=== PATIENT | male | born 1990 | race Caucasian/White ===

== ENCOUNTER 2017-09-18 06:22 | Day surgery (SDC) | payer OTHER, SELFPAY ==
[2017-09-18] MEDS ORDERED: PROMETHAZINE 25 MG/ML VIAL ONE (06:46)
[2017-09-18] MEDS ORDERED: MORPHINE 4 MG/ML SYR ONE ×2 (06:46→09:26)
[2017-09-18] MEDS ORDERED: NA CHLORIDE 0.9% 1,000 ML ONE (06:46)
[2017-09-18 07:15] LABS: Absolute Lymphocytes (CBC) 1.3 K/uL (0.7-4.9); Absolute Neutrophil 10.2 K/uL (1.8-8.0); Basophils % 0.2 % (0-1.3); Eosinophils % 0.8 % (0-4.4); Hematocrit 50.8 % (39.6-49.0); Lymphocytes % 10.5 % (15.3-44.8); MCH 29.7 pg (27.0-35.0); MPV 9.3 fL (7.6-11.3); Monocytes % 7.8 % (3.3-12.3); RBC Red Blood Cell Count 5.78 M/uL (4.33-5.43)
--- NOTE | 2017-09-18 07:36 | ER ---
Nurse's Notes [facility] Name: Veronica Joe Age: 27 yrs Sex: Male : 1990 Arrival Date: 09/18/2017 Time: 06:26 Bed 8 Private MD: Diagnosis: Acute appendicitis Presentation: 09/18 06:36 Presenting complaint: Patient states: LUQ pain that radiates to back since yesterday. aa1 Reports V/D yesterday as well. Transition of care: patient was not received from another setting of care. Onset of symptoms was September 17, 2017. Initial Sepsis Screen: Does the patient meet any 2 criteria? No. Patient's initial sepsis screen is negative. Does the patient have a suspected source of infection? Yes: Acute abdominal pain. Care prior to arrival: None. 06:36 Method Of Arrival: Ambulatory aa1 06:36 Acuity: FREDERICK 3 aa1 Historical: - Allergies: 06:38 No Known Allergies; aa1 - Home Meds: 06:38 None [Active]; aa1 - PMHx: 06:38 None; aa1 - PSHx: 06:38 Knee surgery; shoulder sx; aa1 - Immunization history:: Flu vaccine is not up to date. - Social history:: Smoking status: Patient/guardian denies using tobacco. Screenin:41 Abuse screen: Denies threats or abuse. Denies injuries from another. Nutritional bp screening: No deficits noted. Tuberculosis screening: No symptoms or risk factors identified. Fall Risk None identified. Assessment: 06:40 General: Appears in no apparent distress. uncomfortable, Behavior is calm, cooperative, bp appropriate for age. Pain: Complains of pain in left upper quadrant. Neuro: Level of Consciousness is awake, alert, obeys commands, Oriented to person, place, time, situation, Appropriate for age. Cardiovascular: No deficits noted. Respiratory: Airway is patent Respiratory effort is even, unlabored, Respiratory pattern is regular, symmetrical. GI: Bowel sounds present X 4 quads. Abd is soft X 4 quads Abdomen is tender to palpation. : No signs and/or symptoms were reported regarding the genitourinary system. EENT: No deficits noted. Derm: No deficits noted. Musculoskeletal: Circulation, motion, and sensation intact. Range of motion: intact in all extremities. 06:56 Reassessment: PO CONTRAST COMPLETED, CT NOTIFIED. bp 07:00 General: Appears in no apparent distress. uncomfortable, Behavior is calm, cooperative, hj appropriate for age. Pain: Complains of pain in right lower quadrant and left lower quadrant and left upper quadrant. Neuro: Level of Consciousness is awake, alert, obeys commands, Oriented to person, place, time, situation, Appropriate for age. Cardiovascular: Capillary refill < 3 seconds Patient's skin is warm and dry. Respiratory: Airway is patent Respiratory effort is even, unlabored, Respiratory pattern is regular, symmetrical. GI: Bowel sounds present X 4 quads. Abd is soft Abdomen is tender to palpation. : No signs and/or symptoms were reported regarding the genitourinary system. EENT: No signs and/or symptoms were reported regarding the EENT system. Derm: No signs and/or symptoms reported regarding the dermatologic system. Musculoskeletal: No signs and/or symptoms reported regarding the musculoskeletal system. 08:00 Reassessment: awaiting results and POC;. Vital Signs: 06:38 BP 128 / 84; Pulse 78; Resp 18; Temp 97.8; Pulse Ox 100% on R/A; Weight 90.72 kg; aa1 Height 6 ft. 2 in. (187.96 cm); Pain 10/10; 08:01 BP 110 / 81; Pulse 70; Resp 18; Pulse Ox 100% on R/A; hj 09:00 BP 115 / 80; Pulse 75; Resp 18; Pulse Ox 100% on R/A; hj 10:00 BP 124 / 80; Pulse 75; Resp 18; Pulse Ox 100% on R/A; hj 06:38 Body Mass Index 25.68 (90.72 kg, 187.96 cm) aa1 ED Course: 06:26 Patient arrived in ED. ds1 06:30 Rolando Taylor PA is PHCP. jr8 06:31 Fortunato Alva MD is Attending Physician. jr8 06:37 Triage completed. aa1 06:38 Arm band placed on right wrist. Patient placed in an exam room, on a stretcher. aa1 06:39 Huey Sevilla, BRAULIO is Primary Nurse. bp 06:42 Patient has correct armband on for positive identification. Bed in low position. Call bp light in reach. Side rails up X2. Adult w/ patient. 06:42 Inserted saline lock: 18 gauge in right antecubital area, using aseptic technique. bp Blood collected. 08:38 CT completed. Patient tolerated procedure well. Patient moved to CT via wheelchair. Patient moved back from CT. 08:41 CT Abd/Pelvis - W/Contrast In Process Unspecified. EDND 09:27 Robles Lim MD is Hospitalizing Provider. jr8 10:06 No provider procedures requiring assistance completed. Patient admitted, IV remains in hj place. intact. Administered Medications: 06:55 Drug: NS 0.9% 1000 ml Route: IV; Rate: 125 ml/hr; Site: right antecubital; bp 08:07 Follow up: IV Status: Infusion continued hj 06:55 Drug: morphine 4 mg Route: IVP; Site: right antecubital; bp 08:06 Follow up: Response: Pain is decreased hj 06:55 CANCELLED (Other Intervention Used): Zofran 4 mg IVP once; over 2 minutes bp 06:56 Drug: Phenergan 12.5 mg Route: IVP; Site: right antecubital; bp 08:06 Follow up: Response: No adverse reaction; Nausea is decreased hj 09:17 Drug: Zosyn 3.375 grams Route: IVPB; Infused Over: 60 mins; Site: right antecubital; hj 09:17 Drug: morphine 4 mg Route: IVP; Site: right antecubital; hj 10:08 Follow up: Response: No adverse reaction; Pain is decreased Outcome: 07:35 Discharge ordered by . jr8 09:28 Decision to Hospitalize by Provider. jr8 10:06 Admitted to OR accompanied by nurse, family with patient, via stretcher, with chart, hj Report called to BRAULIO Cardoso 10:06 Condition: stable 10:06 Instructed on the need for admit, Demonstrated understanding of instructions. 10:07 Patient left the ED. Signatures: Dispatcher [employer] EDMS Akilah Navarrete, RN RN Judi Shaw Demi dsRolando Kennedy PA PA jr8 Santino Saeed RN RN hj Huey Sevilla RN RN bp
--- NOTE | 2017-09-18 07:36 | EDPHYS ---
Physician Documentation [facility] Name: Veornica Joe Age: 27 yrs Sex: Male : 1990 Arrival Date: 09/18/2017 Time: 06:26 Bed 8 Private MD: ED Physician Fortunato Alva HPI: 09/18 07:29 This 27 yrs old Male presents to ER via Ambulatory with complaints of jr8 Abdominal Pain. 07:39 The patient presents with abdominal pain in the lower abdomen. Onset: The jr8 symptoms/episode began/occurred acutely, today. The symptoms do not radiate. Associated signs and symptoms: Pertinent positives: nausea, vomiting, and diarrhea. The symptoms are described as crampy, stabbing. Modifying factors: The symptoms are alleviated by nothing, the symptoms are aggravated by nothing. Severity of pain: At its worst the pain was moderate in the emergency department the pain is unchanged. The patient has not experienced similar symptoms in the past. The patient has not recently seen a physician. Historical: - Allergies: 06:38 No Known Allergies; aa1 - Home Meds: 06:38 None [Active]; aa1 - PMHx: 06:38 None; aa1 - PSHx: 06:38 Knee surgery; shoulder sx; aa1 - Immunization history:: Flu vaccine is not up to date. - Social history:: Smoking status: Patient/guardian denies using tobacco. ROS: 07:29 Eyes: Negative for injury, pain, redness, and discharge, ENT: Negative for injury, jr8 pain, and discharge, Neck: Negative for injury, pain, and swelling, Cardiovascular: Negative for chest pain, palpitations, and edema, Respiratory: Negative for shortness of breath, cough, wheezing, and pleuritic chest pain, Back: Negative for injury and pain, MS/Extremity: Negative for injury and deformity, Skin: Negative for injury, rash, and discoloration, Neuro: Negative for headache, weakness, numbness, tingling, and seizure. 07:29 Abdomen/GI: Positive for abdominal pain, nausea, vomiting, and diarrhea, Negative for abdominal distension, anorexia, dysphagia, hematemesis, black/tarry stool, rectal pain, rectal bleeding, bowel incontinence, flatulence. Exam: 07:29 Eyes: Pupils equal round and reactive to light, extra-ocular motions intact. Lids and jr8 lashes normal. Conjunctiva and sclera are non-icteric and not injected. Cornea within normal limits. Periorbital areas with no swelling, redness, or edema. ENT: Nares patent. No nasal discharge, no septal abnormalities noted. Tympanic membranes are normal and external auditory canals are clear. Oropharynx with no redness, swelling, or masses, exudates, or evidence of obstruction, uvula midline. Mucous membranes moist. Neck: Trachea midline, no thyromegaly or masses palpated, and no cervical lymphadenopathy. Supple, full range of motion without nuchal rigidity, or vertebral point tenderness. No Meningismus. Cardiovascular: Regular rate and rhythm with a normal S1 and S2. No gallops, murmurs, or rubs. Normal PMI, no JVD. No pulse deficits. Respiratory: Lungs have equal breath sounds bilaterally, clear to auscultation and percussion. No rales, rhonchi or wheezes noted. No increased work of breathing, no retractions or nasal flaring. Back: No spinal tenderness. No costovertebral tenderness. Full range of motion. Skin: Warm, dry with normal turgor. Normal color with no rashes, no lesions, and no evidence of cellulitis. MS/ Extremity: Pulses equal, no cyanosis. Neurovascular intact. Full, normal range of motion. Neuro: Awake and alert, GCS 15, oriented to person, place, time, and situation. Cranial nerves II-XII grossly intact. Motor strength 5/5 in all extremities. Sensory grossly intact. Cerebellar exam normal. Normal gait. 07:39 Abdomen/GI: Inspection: abdomen appears normal, Bowel sounds: active, all quadrants, jr8 Palpation: soft, in all quadrants, mild abdominal tenderness, in the left upper quadrant and left lower quadrant, moderate abdominal tenderness, in the right lower quadrant, mass, is not appreciated, rebound tenderness, is not appreciated, voluntary guarding, is not appreciated, involuntary guarding, is not appreciated, no appreciated organomegaly, Indicators: McBurney's point is tender, Taveras's sign is negative, Rovsing's sign is positive, Obturator sign is negative, Psoas sign is negative, Liver: no appreciated palpable abnormalities, tenderness, is not appreciated. Vital Signs: 06:38 BP 128 / 84; Pulse 78; Resp 18; Temp 97.8; Pulse Ox 100% on R/A; Weight 90.72 kg; aa1 Height 6 ft. 2 in. (187.96 cm); Pain 10/10; 08:01 BP 110 / 81; Pulse 70; Resp 18; Pulse Ox 100% on R/A; hj 09:00 BP 115 / 80; Pulse 75; Resp 18; Pulse Ox 100% on R/A; hj 10:00 BP 124 / 80; Pulse 75; Resp 18; Pulse Ox 100% on R/A; hj 06:38 Body Mass Index 25.68 (90.72 kg, 187.96 cm) aa1 MDM: 06:31 Patient medically screened. jr8 07:29 Data interpreted: Pulse oximetry: on room air is 100 %. Interpretation: normal. jr8 09:26 Data reviewed: vital signs, nurses notes, lab test result(s), radiologic studies, CT jr8 scan, and as a result, I will admit patient. Counseling: I had a detailed discussion with the patient and/or guardian regarding: the historical points, exam findings, and any diagnostic results supporting the discharge/admit diagnosis, lab results, radiology results, the need for further work-up and treatment in the hospital. Physician consultation: Robles Lim MD was called at 09:27, was contacted at 09:27, regarding admission, to the operating room, consult, patient's condition, and will see patient in ED. 09/18 06:44 Order name: Basic Metabolic Panel; Complete Time: 07:49 bp 09/18 06:44 Order name: CBC with Diff; Complete Time: 07:23 bp 09/18 06:44 Order name: Creatinine for Radiology; Complete Time: 07:35 bp 09/18 06:44 Order name: Hepatic Function; Complete Time: 07:49 bp 09/18 06:44 Order name: Lipase; Complete Time: 07:49 bp 09/18 08:26 Order name: Urine Dipstick--Ancillary (enter results) ag 09/18 06:44 Order name: IV Saline Lock; Complete Time: 06:55 bp 09/18 06:44 Order name: CT Abd/Pelvis - W/Contrast; Complete Time: 09:16 bp 09/18 06:44 Order name: Labs collected and sent; Complete Time: 06:55 bp 09/18 06:44 Order name: Urine Dipstick-Ancillary (obtain specimen); Complete Time: 09:08 bp Administered Medications: 06:55 Drug: NS 0.9% 1000 ml Route: IV; Rate: 125 ml/hr; Site: right antecubital; bp 08:07 Follow up: IV Status: Infusion continued hj 06:55 Drug: morphine 4 mg Route: IVP; Site: right antecubital; bp 08:06 Follow up: Response: Pain is decreased hj 06:55 CANCELLED (Other Intervention Used): Zofran 4 mg IVP once; over 2 minutes bp 06:56 Drug: Phenergan 12.5 mg Route: IVP; Site: right antecubital; bp 08:06 Follow up: Response: No adverse reaction; Nausea is decreased hj 09:17 Drug: Zosyn 3.375 grams Route: IVPB; Infused Over: 60 mins; Site: right antecubital; hj 09:17 Drug: morphine 4 mg Route: IVP; Site: right antecubital; hj 10:08 Follow up: Response: No adverse reaction; Pain is decreased hj Disposition: 14:09 Co-signature as Attending Physician, Fortunato Alva MD I agree with the assessment and [facility] plan of care. Disposition: 09/18/17 09:28 Hospitalization ordered by Robles Lim for Observation. Preliminary diagnosis is Acute appendicitis. - Bed requested for Operating Room. - Status is Observation. hj - Condition is Stable. - Problem is new. - Symptoms are unchanged. UTI on Admission? No Signatures: Dispatcher [employer] EDMS Akilah Navarrete RN RN aa1 Fortunato Alva MD MD cha Roszak, Josh, PA PA jr8 Santino Saeed RN RN Huey Sevilla RN RN bp Corrections: (The following items were deleted from the chart) 06:55 06:44 Zofran 4 mg IVP once; over 2 minutes ordered. bp bp 07:36 07:35 09/18/2017 07:35 Discharged to Home. Impression: Endometriosis; Abdominal and jr8 pelvic pain. Condition is Stable. Forms are Medication Reconciliation Form, Thank You Letter, Antibiotic Education, Prescription Opioid Use. Follow up: Private Physician; When: 2 - 3 days; Reason: Recheck today's complaints, Continuance of care, Re-evaluation by your physician. Problem is new. Symptoms have improved. jr8 07:40 07:29 The patient presents with abdominal pain in the lower abdomen, jr8 jr8 07:29 Onset: The symptoms/episode began/occurred acutely, yesterday, jr8 jr8 07: The symptoms do not radiate. jr8 jr8 07:29 Associated signs and symptoms: none. jr8 jr8 07:29 The symptoms are described as crampy, jr8 jr8 07: Modifying factors: The symptoms are alleviated by nothing, the symptoms are jr8 aggravated by nothing. jr8 07: Severity of pain: At its worst the pain was moderate in the emergency department jr8 the pain is unchanged jr8 : The patient has experienced similar episodes in the past, several times, jr8 jr8 : The patient has not recently seen a physician, jr8 jr8 07: Patient stated that she has history of endometriosis. Will occasionally have jr8 flare up and will require antiinflammatory and pain medicine. Stated that she has not had a problem in about 2 years. Denies n/v/d or fevers . jr8 07: Abdomen/GI: Positive for abdominal pain, Negative for nausea, vomiting, and jr8 diarrhea, abdominal distension, anorexia, dysphagia, hematemesis, black/tarry stool, rectal pain, rectal bleeding, bowel incontinence, flatulence, jr8 07:29 Data reviewed: vital signs, nurses notes, lab test result(s), and as a result, I sadia will discharge patient, jr8 07:29 Counseling: I had a detailed discussion with the patient and/or guardian sadia regarding: the historical points, exam findings, and any diagnostic results supporting the discharge/admit diagnosis, lab results, the need for outpatient follow up, an OB/Gyne specialist, to return to the emergency department if symptoms worsen or persist or if there are any questions or concerns that arise at home, jr8 07:29 Eyes: Pupils equal round and reactive to light, extra-ocular motions intact. Lids jr8 and lashes normal. Conjunctiva and sclera are non-icteric and not injected. Cornea within normal limits. Periorbital areas with no swelling, redness, or edema. ENT: Nares patent. No nasal discharge, no septal abnormalities noted. Tympanic membranes are normal and external auditory canals are clear. Oropharynx with no redness, swelling, or masses, exudates, or evidence of obstruction, uvula midline. Mucous membranes moist. Neck: Trachea midline, no thyromegaly or masses palpated, and no cervical lymphadenopathy. Supple, full range of motion without nuchal rigidity, or vertebral point tenderness. No Meningismus. Cardiovascular: Regular rate and rhythm with a normal S1 and S2. No gallops, murmurs, or rubs. Normal PMI, no JVD. No pulse deficits. Respiratory: Lungs have equal breath sounds bilaterally, clear to auscultation and percussion. No rales, rhonchi or wheezes noted. No increased work of breathing, no retractions or nasal flaring. Abdomen/GI: Soft, non-tender, with normal bowel sounds. No distension or tympany. No guarding or rebound. No evidence of tenderness throughout. Back: No spinal tenderness. No costovertebral tenderness. Full range of motion. Skin: Warm, dry with normal turgor. Normal color with no rashes, no lesions, and no evidence of cellulitis. MS/ Extremity: Pulses equal, no cyanosis. Neurovascular intact. Full, normal range of motion. Neuro: Awake and alert, GCS 15, oriented to person, place, time, and situation. Cranial nerves II-XII grossly intact. Motor strength 5/5 in all extremities. Sensory grossly intact. Cerebellar exam normal. Normal gait. jr8 10:07 09:28 Hospitalization Ordered by Robles Lim MD for Observation. Preliminary diagnosis hj is Acute appendicitis. Bed requested for Operating Room. Status is Observation. Condition is Stable. Problem is new. Symptoms are unchanged. UTI on Admission? No. jr8
[2017-09-18 07:39] LABS: Bicarbonate 28 mEq/L (21-31); Glucose Level 102 mg/dL (65-120); Lipase 19 U/L (22-51); Potassium 3.6 mEq/L (3.6-5.0); Sodium Level 132 mEq/L (135-145)
[2017-09-18 07:45] LABS: ALT/SGPT 19 IU/L (10-60); AST/SGOT 20 IU/L (10-42); Albumin 4.3 g/dL (3.2-5.5); Alkaline Phosphatase 58 IU/L (42-121); BUN Blood Urea Nitrogen 17 mg/dL (6-20); Bilirubin Direct 0.1 mg/dL (0-0.2); Bilirubin Total 0.7 mg/dL (0.3-1.2); Protein, Total 7.5 g/dL (6.0-8.3)
--- NOTE | 2017-09-18 09:06 | RAD REPORT ---
EXAM DESCRIPTION: CTAbdomen Pelvis W Contrast - 09/18/2017 8:40 am CLINICAL HISTORY: Abdominal pain. COMPARISON: 03/19/2012 TECHNIQUE: Biphasic CT imaging of the abdomen and pelvis was performed with 100 ml non-ionic IV cont rast. All CT scans are performed using dose optimization technique as appropriate and may include automated exposure control or mA/KV adjustment according to patient size. FINDINGS: The lung bases are clear. The liver, spleen, pancreas, adrenal glands and kidneys are within normal limits. No bowel obstruction, free air, free fluid or abscess. The appendix enlarged to 10 mm compatible wit h acute appendicitis. No evidence of significant lymphadenopathy. No suspicious bony findings. IMPRESSION: Early acute appendicitis is suspected.
[2017-09-18] MEDS ORDERED: PIPER/TAZO/NS 3.375gm 3.375 GM/100 ML BAG ONE (09:27)
[2017-09-18] MEDS ORDERED: Ringers Lactate 1,000 ML IV ONE (10:07)
[2017-09-18] MEDS ORDERED: PROPOFOL 200 MG/20 ML VIAL IV ONE ×2 (10:13→10:48)
[2017-09-18] MEDS ORDERED: MIDAZOLAM HCL 2 MG/2 ML INJ ONE ×2 (10:14→11:20)
[2017-09-18] MEDS ORDERED: GLYCOPYRROLATE 0.2 MG/ML SYR ONE (10:14)
[2017-09-18] MEDS ORDERED: FENTANYL CITR 100 MCG/2 ML ONE ×2 (10:15→10:48)
[2017-09-18] MEDS ORDERED: ROCURONIUM 50 MG/5 ML VIAL IV ONE (10:17)
[2017-09-18] MEDS ORDERED: NEOSTIGMINE 1 MG/ML -5 ML SYRINGE ONE (10:17)
[2017-09-18] MEDS ORDERED: BUPIVACA 0.25%/EPI 0.0005%/PF 30 ML VIAL ONE (10:18)
[2017-09-18] MEDS ORDERED: ONDANSETRON 4 MG/2 ML VIAL ONE (10:29)
[2017-09-18 10:30] LABS: Urine Blood NEGATIVE (NEG); Urine Glucose TRACE (NEG); Urine Protein NEGATIVE (NEG)
[2017-09-18] MEDS ORDERED: LIDOCAINE 2% MPF 5 ML VIAL ONE (10:38)
--- NOTE | 2017-09-18 11:25 | P.OP ---
Preoperative diagnosis: Acute Appendicitis Postoperative diagnosis: Acute Appendicitis Primary procedure: Laparoscopic Appendectomy Anesthesia: GETA + Local Estimated blood loss: <10cc Specimen: Vermiform Appendix Findings: acute inflammation of distal appendix, non-perforated Complications: None Transferred to: Recovery Room Condition: Good
[2017-09-18] MEDS: MEPERIDINE HCL 25 MG/0.5 ML ONE ×2 (11:45→12:06)
[2017-09-18 12:22] VITALS: TEMP 98.3
[2017-09-18] MEDS ORDERED: HYDROCODONE/APAP 5/325 MG TAB ONE (12:45)
[2017-09-18 12:58] VITALS: BP 119/71; O2SAT 97
--- NOTE | 2017-09-18 21:34 | HP ---
Date of Admission: 09/18/2017 Brief History Of Present Illness: The patient is a 27-year-old, male, who presents with hi story of approximately 1-day history of epigastric and midline abdominal pain, which got progressivel y worse over the course of the evening. He said he has had several episodes that were similar before in the past, which were alleviated by some nausea and vomiting. However, on this episode, nausea an d vomiting did not relieve his symptoms. The pain got significantly worse and started to radiate atiya n to the right lower quadrant and onto his back. He has not had similar episodes with respect to thi s particular type of pain. They got sharp and intense, and as such, he asked his to bring him t o the emergency room at which time she brought him in. He has low-grade fevers at home and chills. No additional aggravating or alleviating factors as described. Past Medical History: Significant for meningitis. Past Surgical History: He has had a right shoulder and right knee surgery. Allergies: NO KNOWN DRUG ALLERGIES. Medications: None. Social History: He smokes a half pack per day x10 years. Denies alcohol or recreational drug use. Works as a [employer]. He is currently . Family History: Noncontributory. Review of Systems: A 10-point review of systems other than HPI, denies. Physical Examination: At the time of my examination, General: He is awake, alert, and oriented. Psychiatric: He is appropriate and conversive. HEENT: Normocephalic. Sclerae anicteric. Mucous membranes are moist. Oropharynx clear. Neck: Supple. No JVD. Chest: Normal expansion and excursion. Cardiovascular: Regular rate and rhythm. Pulmonary: Clear to auscultation bilaterally. Abdomen: Soft with positive right lower quadrant tenderness to palpation. Positive focal peritoniti s in the right lower quadrant consistent with acute appendicitis at [facility] point. He has no hernia s. Extremities: No clubbing, cyanosis, or edema. Skin: Warm and dry, otherwise. Laboratory Data: Reveals white blood count 12.7, hemoglobin is 17.2, hematocrit 50.8, platelet count is 201, neutrophils 80.7%. His sodium 132, potassium 3.6, chloride 96, carbon dioxide 28, BUN 17, c reatinine 0.96, glucose is 102, calcium 9.9, total bilirubin 0.7, direct component 0.1, AST 20, ALT 1 9, alkaline phosphatase is 58, lipase is 19. UA is currently pending. He had a CT scan for the abdo men and pelvis, which officially read as early acute appendicitis suspected. Specifically, the appen juan carlos is large at 10 mm compatible with acute appendicitis. No evidence of significant lymphadenopathy . Assessment And Plan: This is a 27-year-old male who presents signs and symptoms of acute appendiciti s. 1.IV fluid hydration. 2.Antibiotic coverage. 3.I explained the risks, benefits, and alternatives of laparoscopic, possible open appendectomy incl uding but not limited to bleeding, infection, damage to the surrounding tissue, need for further oper ating procedures. The patient agrees to proceed as indicated. GLENIS/GLORIA Voice ID: [id number]
--- NOTE | 2017-09-18 23:40 | OP ---
Date of Procedure: 09/18/2017 Surgeon: Robles Lim MD, Preoperative Diagnosis: Acute appendicitis. Postoperative Diagnosis: Acute appendicitis. Procedure Performed: Laparoscopic appendectomy. Anesthesia: General endotracheal plus local with 0.25% Marcaine with epinephrine. Estimated Blood Loss: Less than 10 cc. Specimen: Vermiform appendix. Findings: Acute inflammation of the distal appendix, non perforated. Complications: None. Disposition: Transferred to recovery room in good condition. Procedure In Detail: After informed consent obtained, the patient was brought to the operating room, prepped and draped in the usual sterile fashion. After adequate anesthesia was achieved, infraumbil ical area was anesthetized with 0.25% Marcaine, sharply incised and 5-mm trocar was introduced into t he abdomen without evidence of complication and insufflation was obtained to 15 mmHg. At this time, there was no injury to vital structures upon entry the abdomen. Additional trocar placed in the supr apubic position after appropriately anesthetizing and sharply incising, it was placed well without ev idence of complication. The umbilical trocar was then up-sized to a 12 mm under direct visualization without evidence of complication. Additional trocar chosen in the left lower quadrant at this time, was similarly anesthetized and sharply incised and a 5-mm trocar was introduced into the abdomen wit hout evidence of complication. The patient was then positioned in the right-side up, head down posit ion. Ratcheted grasper used to grasp the appendix, was found to be non perforated, but acutely infla med, particularly on the distal aspect, it was elevated. Mesoappendix was visualized and a mesoappen diceal window was created at the confluence of the cecum with a [place] retractor. After this was p assed, an Endo EDMUNDO 35 blue load was fired across the base of the appendix with good approximation of the tissues. No leakage from the staple line at the end of the procedure. The LigaSure device was t hen used to take the mesoappendix down without evidence of complication. The appendix was then place d in an EndoCatch bag and removed through umbilical trocar. Reinsufflation was obtained at this time . The area was copiously irrigated multiple times and suctioned dry. The staple line was found to b e in good anatomic position without any leakage and there was no additional hemostatic maneuvers requ ired. The patient was positioned in neutral position. The umbilical trocar was then removed and mya sed with a Jay suture passer using 0 Vicryl in interrupted fashion with good approximatio n of tissues. The remainder of the abdomen was then completely desufflated under direct visualizatio n without evidence of complication. All trocars were then removed. All skin incisions were copiousl y irrigated and closed with a 4-0 Monocryl in a running fashion Dermabond placed over the top. The p atient tolerated the procedure well without evidence of complication and transferred back in good con dition. All counts were correct at the end of the case. GLENIS/GLORIA Voice ID: [id number] Report ID: [id number]
== END 2017-09-18 13:06 | disposition home or self-care (01) ==
LOC: ER 06:22 → OR 09:57
PROVIDERS: ATTEND Surgery
PROC: 0DTJ4ZZ Resection of Appendix, Percutaneous Endoscopic Approach (ICD-10-PCS; principal; 2017-09-18 09:45)
DX: K35.80 Unspecified acute appendicitis (principal); F17.200 Nicotine dependence, unspecified, uncomplicated; Z86.61 Personal history of infections of the central nervous system
CPT/HCPCS: 36415; 74177; 80048; 80076; 81003; 83690; 85025; 88304; 88305; 96361; 96374; 96375; 99285; J2175; J2250; J2405; J2543; J2550; J2710; J3010; J7030; Q9967

== ENCOUNTER 2018-11-06 22:03 | Emergency (ER) | payer BC, SELFPAY ==
[2018-11-06] MEDS ORDERED: KETOROLAC 30 MG/ML INJ ONE (23:00)
[2018-11-06] MEDS ORDERED: MORPHINE 4 MG/ML SYR ONE (23:00)
[2018-11-06] MEDS ORDERED: ONDANSETRON 4 MG (ODT) TAB ONE (23:00)
--- NOTE | 2018-11-06 23:04 | ER ---
Nurse's Notes [facility] Name: Veronica Joe Age: 28 yrs Sex: Male : 1990 Arrival Date: 11/06/2018 Time: 22:09 Bed 20 Private MD: Diagnosis: Influenza due to other identified influenza virus Presentation: 11/06 22:22 Presenting complaint: Patient states: For the past day I haven't been feeling well. I ed1 have had fever and nothing is making is go away. Pt reports Tmax 104. Transition of care: patient was not received from another setting of care. Onset of symptoms was November 05, 2018. Risk Assessment: Do you want to hurt yourself or someone else? Patient reports no desire to harm self or others. Initial Sepsis Screen: Does the patient meet any 2 criteria? No. Patient's initial sepsis screen is negative. Does the patient have a suspected source of infection? No. Patient's initial sepsis screen is negative. Care prior to arrival: None. 22:22 Method Of Arrival: Ambulatory ed1 22:22 Acuity: FREDERICK 3 ed1 Triage Assessment: 22:24 General: Appears uncomfortable, Behavior is calm, cooperative. Pain: Complains of pain ed1 in low back area Pain does not radiate. Pain currently is 9 out of 10 on a pain scale. Quality of pain is described as aching, Pain began 1 day ago. Is continuous. EENT: No signs and/or symptoms were reported regarding the EENT system. Neuro: Level of Consciousness is awake, alert, obeys commands, Oriented to person, place, time, situation. Cardiovascular: Denies chest pain, Heart tones S1 S2 present. Respiratory: Airway is patent Respiratory effort is even, unlabored, Respiratory pattern is regular, symmetrical, Breath sounds are clear bilaterally. GI: Reports nausea, vomiting. : No signs and/or symptoms were reported regarding the genitourinary system. Derm: Skin is intact, is healthy with good turgor, Skin is dry, Skin is normal, Skin temperature is warm. Musculoskeletal: Circulation, motion, and sensation intact. Range of motion: intact in all extremities. Historical: - Allergies: 22:24 No Known Allergies; ed1 - PMHx: 22:24 None; ed1 - PSHx: 22:24 Knee surgery; shoulder sx; ed1 - Immunization history:: Adult Immunizations up to date. - Social history:: Smoking status: Patient uses tobacco products, smokes one pack cigarettes per day. Patient/guardian denies using alcohol, street drugs, The patient lives with family. - Ebola Screening: : Patient negative for fever greater than or equal to 101.5 degrees Fahrenheit, and additional compatible Ebola Virus Disease symptoms Patient denies exposure to infectious person Patient denies travel to an Ebola-affected area in the 21 days before illness onset No symptoms or risks identified at this time. - Family history:: not pertinent. Screenin:28 Abuse screen: Denies threats or abuse. Denies injuries from another. Nutritional ed1 screening: No deficits noted. Tuberculosis screening: No symptoms or risk factors identified. Fall Risk None identified. Assessment: 22:28 General: See triage assessment. GI: Abdomen is non-distended, Bowel sounds present X 4 ed1 quads. Abd is soft and non tender X 4 quads. Reports nausea, vomiting. 23:16 Reassessment: Patient appears in no apparent distress at this time. Patient and/or ed1 family updated on plan of care and expected duration. Pain level reassessed. Patient is alert, oriented x 3, equal unlabored respirations, skin warm/dry/pink. Patient states feeling better. Patient states symptoms have improved. Vital Signs: 22:24 BP 129 / 88; Pulse 123; Resp 18; Temp 98.5; Pulse Ox 96% on R/A; Weight 99.79 kg; ed1 Height 6 ft. 2 in. (187.96 cm); Pain 9/10; 23:16 BP 116 / 73; Pulse 116; Resp 18; Temp 98.9(O); Pulse Ox 100% on R/A; Pain 6/10; ed1 22:24 Body Mass Index 28.25 (99.79 kg, 187.96 cm) ed1 ED Course: 22:09 Patient arrived in ED. es 22:18 Sheyla Cantu, RN is Primary Nurse. ed1 22:24 Triage completed. ed1 22:24 Arm band placed on. ed1 22:28 Patient has correct armband on for positive identification. Bed in low position. Call ed1 light in reach. Adult w/ patient. Pulse ox on. NIBP on. 22:36 Savage Romero MD is Attending Physician. ma2 23:16 No provider procedures requiring assistance completed. Patient did not have IV access ed1 during this emergency room visit. Administered Medications: 22:52 Drug: morphine 4 mg Route: IM; Site: left ventrogluteal; ed1 23:16 Follow up: Response: No adverse reaction; Pain is decreased ed1 22:52 Drug: Zofran 4 mg Route: PO; ed1 23:16 Follow up: Response: No adverse reaction; Nausea is decreased ed1 22:53 Drug: TORadol 60 mg Route: IM; Site: left ventrogluteal; ed1 23:16 Follow up: Response: No adverse reaction; Pain is decreased ed1 Outcome: 23:03 Discharge ordered by . ma2 23:16 Discharged to home ambulatory, with significant other. ed1 23:16 Condition: good 23:16 Discharge instructions given to patient, significant other, Instructed on discharge instructions, follow up and referral plans. medication usage, Demonstrated understanding of instructions, follow-up care, medications, Prescriptions given X 3. 23:18 Patient left the ED. ed1 Signatures: Gwen Levin Erika, RN RN ed1 Savage Romero MD MD ma2
--- NOTE | 2018-11-06 23:04 | EDPHYS ---
Physician Documentation [facility] Name: Veronica Joe Age: 28 yrs Sex: Male : 1990 Arrival Date: 11/06/2018 Time: 22:09 Bed 20 Private MD: ED Physician Savage Romero HPI: 11/06 23:02 This 28 yrs old Male presents to ER via Ambulatory with complaints of Fever, ma2 Vomiting, CHILLS, BODY ACHE. 23:02 The patient reports fever, not measured (subjective). Onset: The symptoms/episode ma2 began/occurred gradually, 2 day(s) ago. Associated signs and symptoms: Pertinent negatives: abdominal pain, backache, chills, runny nose. Severity of symptoms: At their worst the symptoms were moderate in the emergency department the symptoms are unchanged. The patient has not experienced similar symptoms in the past. Historical: - Allergies: 22:24 No Known Allergies; ed1 - PMHx: 22:24 None; ed1 - PSHx: 22:24 Knee surgery; shoulder sx; ed1 - Immunization history:: Adult Immunizations up to date. - Social history:: Smoking status: Patient uses tobacco products, smokes one pack cigarettes per day. Patient/guardian denies using alcohol, street drugs, The patient lives with family. - Ebola Screening: : Patient negative for fever greater than or equal to 101.5 degrees Fahrenheit, and additional compatible Ebola Virus Disease symptoms Patient denies exposure to infectious person Patient denies travel to an Ebola-affected area in the 21 days before illness onset No symptoms or risks identified at this time. - Family history:: not pertinent. ROS: 23:02 Neck: Negative for injury, pain, and swelling, Cardiovascular: Negative for chest pain, ma2 palpitations, and edema, Abdomen/GI: Negative for abdominal pain, nausea, diarrhea, and constipation. 23:02 Constitutional: Positive for chills, fatigue, Negative for poor PO intake. 23:02 All other systems are negative. Exam: 23:02 Constitutional: This is a well developed, well nourished patient who is awake, alert, ma2 and in no acute distress. Eyes: Pupils equal round and reactive to light, extra-ocular motions intact. Lids and lashes normal. Conjunctiva and sclera are non-icteric and not injected. Cornea within normal limits. Periorbital areas with no swelling, redness, or edema. ENT: Nares patent. No nasal discharge, no septal abnormalities noted. Tympanic membranes are normal and external auditory canals are clear. Oropharynx with no redness, swelling, or masses, exudates, or evidence of obstruction, uvula midline. Mucous membranes moist. Chest/axilla: Normal chest wall appearance and motion. Nontender with no deformity. No lesions are appreciated. Cardiovascular: Regular rate and rhythm with a normal S1 and S2. No gallops, murmurs, or rubs. Normal PMI, no JVD. No pulse deficits. Respiratory: Lungs have equal breath sounds bilaterally, clear to auscultation and percussion. No rales, rhonchi or wheezes noted. No increased work of breathing, no retractions or nasal flaring. Abdomen/GI: Soft, non-tender, with normal bowel sounds. No distension or tympany. No guarding or rebound. No evidence of tenderness throughout. Back: No spinal tenderness. No costovertebral tenderness. Full range of motion. MS/ Extremity: Pulses equal, no cyanosis. Neurovascular intact. Full, normal range of motion. Neuro: Awake and alert, GCS 15, oriented to person, place, time, and situation. Cranial nerves II-XII grossly intact. Motor strength 5/5 in all extremities. Sensory grossly intact. Cerebellar exam normal. Normal gait. Vital Signs: 22:24 BP 129 / 88; Pulse 123; Resp 18; Temp 98.5; Pulse Ox 96% on R/A; Weight 99.79 kg; ed1 Height 6 ft. 2 in. (187.96 cm); Pain 9/10; 23:16 BP 116 / 73; Pulse 116; Resp 18; Temp 98.9(O); Pulse Ox 100% on R/A; Pain 6/10; ed1 22:24 Body Mass Index 28.25 (99.79 kg, 187.96 cm) ed1 MDM: 22:36 Patient medically screened. ma2 23:02 Differential diagnosis: viral Infection, URI, bronchitis. Data reviewed: vital signs, ma2 nurses notes. Counseling: I had a detailed discussion with the patient and/or guardian regarding: the historical points, exam findings, and any diagnostic results supporting the discharge/admit diagnosis, the presence of at least one elevated blood pressure reading (>120/80) during this emergency department visit, the need for outpatient follow up. Response to treatment: the patient's symptoms have resolved after treatment. 11/06 22:13 Order name: Flu; Complete Time: 23:02 snw Administered Medications: 22:52 Drug: morphine 4 mg Route: IM; Site: left ventrogluteal; ed1 23:16 Follow up: Response: No adverse reaction; Pain is decreased ed1 22:52 Drug: Zofran 4 mg Route: PO; ed1 23:16 Follow up: Response: No adverse reaction; Nausea is decreased ed1 22:53 Drug: TORadol 60 mg Route: IM; Site: left ventrogluteal; ed1 23:16 Follow up: Response: No adverse reaction; Pain is decreased ed1 Disposition: 11/06/18 23:03 Discharged to Home. Impression: Influenza due to other identified influenza virus. - Condition is Stable. - Discharge Instructions: Influenza, Adult. - Prescriptions for Tylenol- Codeine #3 300-30 mg Oral Tablet - take 2 tablet by ORAL route every 6 hours As needed; 30 tablet. Zithromax Z- Bi 250 mg Oral Tablet - take 1 tablet by ORAL route as directed for 5 days Day 1 - take two (2) tablets one time. Day 2, 3, 4 , 5 take one (1) tablet once daily.; 6 tablet. Tamiflu 75 mg Oral Capsule - take 1 tablet by ORAL route every 12 hours for 5 days; 20 tablet. - Work release form, Medication Reconciliation Form, Thank You Letter, Antibiotic Education, Prescription Opioid Use form. - Follow up: Private Physician; When: Tomorrow; Reason: Continuance of care. Signatures: Dispatcher [employer] EDMS Sheyla Cantu RN RN ed1 Savage Romero MD MD ma2 Corrections: (The following items were deleted from the chart) 23:18 23:03 11/06/2018 23:03 Discharged to Home. Impression: Influenza due to other ed1 identified influenza virus. Condition is Stable. Prescriptions for Tylenol-Codeine #3 300-30 mg Oral Tablet - take 2 tablet by ORAL route every 6 hours As needed; 30 tablet, Zithromax Z-Bi 250 mg Oral Tablet - take 1 tablet by ORAL route as directed for 5 days Day 1 - take two (2) tablets one time. Day 2, 3, 4 , 5 take one (1) tablet once daily.; 6 tablet. and Forms are Medication Reconciliation Form, Thank You Letter, Antibiotic Education, Prescription Opioid Use. Follow up: Private Physician; When: Tomorrow; Reason: Continuance of care. ma2
[2018-11-06 23:42] VITALS: BP 116/73; TEMP 98.9; O2SAT 100
== END 2018-11-06 23:18 | disposition home or self-care (01) ==
LOC: ER 22:03
DX: J11.1 Influenza due to unidentified influenza virus with other respiratory manifestations (principal)
CPT/HCPCS: 87804; 96372; 99283

== ENCOUNTER 2019-07-03 21:07 | Emergency (ER) | payer BC ==
[2019-07-03] MEDS ORDERED: METOPROLOL TAR 25 MG TAB ONE (21:37)
--- NOTE | 2019-07-03 23:41 | EDPHYS ---
Physician Documentation [facility] Name: Veronica Joe Age: 28 yrs Sex: Male : 1990 Arrival Date: 07/03/2019 Time: 21:11 Bed 16 Private MD: ED Physician Balbir Cardona HPI: 07/03 22:14 This 28 yrs old Male presents to ER via Ambulatory with complaints of Chest snw Pain, High Blood Pressure, Headache. 22:14 Onset: The symptoms/episode began/occurred gradually, today. Associated signs and snw symptoms: Pertinent positives: chest pain. The patient has experienced a previous episode. The patient has not recently seen a physician. Historical: - Allergies: 21:25 Hydrocodone-Acetaminophen; rr5 - Home Meds: 21:25 Nexium Oral [Active]; rr5 - PMHx: 21:25 hole in the heart; rr5 - PSHx: 21:25 Knee surgery; shoulder surgery; heart catheterization; rr5 - Immunization history:: Adult Immunizations up to date. - Coronavirus screen:: The patient has NOT traveled to [place] in the past 14 days. - Social history:: Smoking status: Patient reports the use of cigarette tobacco products, smokes one-half pack cigarettes per day, Patient/guardian denies using alcohol, street drugs. - Ebola Screening: : Patient negative for fever greater than or equal to 101.5 degrees Fahrenheit, and additional compatible Ebola Virus Disease symptoms Patient denies exposure to infectious person Patient denies travel to an Ebola-affected area in the 21 days before illness onset. ROS: 22:13 Constitutional: Negative for fever, chills, and weight loss, Eyes: Negative for injury, snw pain, redness, and discharge, ENT: Negative for injury, pain, and discharge, Neck: Negative for injury, pain, and swelling. 22:13 Respiratory: Negative for shortness of breath, cough, wheezing, and pleuritic chest pain, Abdomen/GI: Negative for abdominal pain, nausea, vomiting, diarrhea, and constipation, Back: Negative for injury and pain, : Negative for injury, bleeding, discharge, and swelling, MS/Extremity: Negative for injury and deformity, Skin: Negative for injury, rash, and discoloration. 22:13 Cardiovascular: Positive for chest pain. 22:13 Neuro: Positive for facial paresthesias. Exam: 21:25 ECG was reviewed by the Attending Physician. snw 22:13 Constitutional: This is a well developed, well nourished patient who is awake, alert, snw and in no acute distress. Head/Face: Normocephalic, atraumatic. Eyes: Pupils equal round and reactive to light, extra-ocular motions intact. Lids and lashes normal. Conjunctiva and sclera are non-icteric and not injected. Cornea within normal limits. Periorbital areas with no swelling, redness, or edema. ENT: Nares patent. No nasal discharge, no septal abnormalities noted. Tympanic membranes are normal and external auditory canals are clear. Oropharynx with no redness, swelling, or masses, exudates, or evidence of obstruction, uvula midline. Mucous membranes moist. Neck: Trachea midline, no thyromegaly or masses palpated, and no cervical lymphadenopathy. Supple, full range of motion without nuchal rigidity, or vertebral point tenderness. No Meningismus. Chest/axilla: Normal chest wall appearance and motion. Nontender with no deformity. No lesions are appreciated. Cardiovascular: Regular rate and rhythm with a normal S1 and S2. No gallops, murmurs, or rubs. Normal PMI, no JVD. No pulse deficits. Respiratory: Lungs have equal breath sounds bilaterally, clear to auscultation and percussion. No rales, rhonchi or wheezes noted. No increased work of breathing, no retractions or nasal flaring. Abdomen/GI: Soft, non-tender, with normal bowel sounds. No distension or tympany. No guarding or rebound. No evidence of tenderness throughout. Back: No spinal tenderness. No costovertebral tenderness. Full range of motion. Skin: Warm, dry with normal turgor. Normal color with no rashes, no lesions, and no evidence of cellulitis. MS/ Extremity: Pulses equal, no cyanosis. Neurovascular intact. Full, normal range of motion. Neuro: Awake and alert, GCS 15, oriented to person, place, time, and situation. Cranial nerves II-XII grossly intact. Motor strength 5/5 in all extremities. Sensory grossly intact. Cerebellar exam normal. Normal gait. Psych: Awake, alert, with orientation to person, place and time. Behavior, mood, and affect are within normal limits. Vital Signs: 21:28 BP 148 / 111; Pulse 97; Resp 19; Temp 97.8; Pulse Ox 99% ; Weight 99.79 kg; Height 6 rr5 ft. 3 in. (190.50 cm); Pain 8/10; 22:36 BP 122 / 90; Pulse 91; Resp 18; Pulse Ox 99% ; rr5 23:00 BP 119 / 76; Pulse 85; Resp 19; Pulse Ox 100% on R/A; Pain 4/10; rr5 07/04 00:00 BP 115 / 83; Pulse 72; Resp 17; Temp 98; Pulse Ox 99% ; Pain 4/10; rr5 07/03 21:28 Body Mass Index 27.50 (99.79 kg, 190.50 cm) rr5 MDM: 07/03 21:24 Patient medically screened. snw 07/04 00:27 Data reviewed: vital signs, nurses notes. Data interpreted: Pulse oximetry: on room air snw is 99 %. Interpretation: normal. Counseling: I had a detailed discussion with the patient and/or guardian regarding: the historical points, exam findings, and any diagnostic results supporting the discharge/admit diagnosis, lab results, radiology results, the need for outpatient follow up, to return to the emergency department if symptoms worsen or persist or if there are any questions or concerns that arise at home. Response to treatment: the patient's symptoms have markedly improved after treatment. Special discussion: Based on the patient's history, exam, and Dx evaluation, there is no indication for emergent intervention or inpatient Tx. It is understood by the patient/guardian that if the Sx's persist or worsen they need to return immediately for re-evaluation. Based on the history and exam findings, there is no indication for further emergent testing or inpatient evaluation. I discussed with the patient/guardian the need to see the plaster helper for further evaluation of the symptoms. I discussed with the patient/guardian the need to see the primary care provider for further evaluation of the symptoms. 07/03 21:31 Order name: Strep snw 07/03 21:59 Order name: Group A Streptococcus Rapid Sc; Complete Time: 22:00 EDMS 07/03 21:31 Order name: Chest Pa And Lat (2 Views) XRAY snw 07/03 21:31 Order name: EKG; Complete Time: 21:43 snw 07/03 22:02 Order name: Group A Streptococcus Rapid Sc EDWI 07/03 21:31 Order name: EKG - Nurse/Tech; Complete Time: 21:32 snw EC/15 21:25 Rate is 99 beats/min. Rhythm is regular. QRS [place] is Normal. [place] interval is normal. QRS snw interval is normal. QT interval is normal. T waves are Inverted in leads III, aVR. Clinical impression: NSR w/ Non-specific ST/T Changes. Administered Medications: 21:36 Drug: Metoprolol 25 mg Route: PO; rr5 22:30 Follow up: Response: No adverse reaction rr5 Disposition: 07/04 00:05 Co-signature as Attending Physician, Balbir Cardona MD I agree with the assessment and kdr plan of care. Disposition: 07/03/19 23:39 Discharged to Home. Impression: Essential (primary) hypertension. - Condition is Stable. - Discharge Instructions: Hypertension, Steps to Quit Smoking, Smoking Hazards, How to Take Your Blood Pressure, [id number], Rehydration, Adult, Managing Your Hypertension, Form - Blood Pressure Record Sheet. - Prescriptions for metoprolol succinate 25 mg Oral tablet extended release 24 hr - take 1 tablet by ORAL route once daily; 20 tablet. - Work release form, Medication Reconciliation Form, Thank You Letter, Antibiotic Education, Prescription Opioid Use form. - Follow up: Emergency Department; When: As needed; Reason: Worsening of condition. Follow up: Private Physician; When: 1 - 2 days; Reason: Recheck today's complaints, Continuance of care, Re-evaluation by your physician. Follow up: Heath Fulton MD; When: as scheduled ; Reason: Recheck today's complaints, Continuance of care, Re-evaluation by your physician. Signatures: Dispatcher [employer] [facility] Balbir Cardona MD MD kdr Therrien, Shelly, FNP-Samantha MONGE-Mauro Marion, RN RN rr5 Corrections: (The following items were deleted from the chart) 00:03 07/03 23:39 07/03/2019 23:39 Discharged to Home. Impression: Essential (primary) rr5 hypertension. Condition is Stable. Forms are Medication Reconciliation Form, Thank You Letter, Antibiotic Education, Prescription Opioid Use. Follow up: Emergency Department; When: As needed; Reason: Worsening of condition. Follow up: Private Physician; When: 1 - 2 days; Reason: Recheck today's complaints, Continuance of care, Re-evaluation by your physician. Follow up: Heath Fulton; When: as scheduled ; Reason: Recheck today's complaints, Continuance of care, Re-evaluation by your physician. ranjit
--- NOTE | 2019-07-03 23:41 | ER ---
Nurse's Notes [facility] Name: Veronica Joe Age: 28 yrs Sex: Male : 1990 Arrival Date: 07/03/2019 Time: 21:11 Bed 16 Private MD: Diagnosis: Essential (primary) hypertension Presentation: 07/03 21:25 Presenting complaint: Patient states: i have this left sided chest pain started 1 1/2 rr5 hour ago i went to ER last Friday with the same complaint. headache, SOB and face tingling sensation on my face started all day. positive cough and congestion denies fever denies vomiting. Transition of care: patient was not received from another setting of care. Onset of symptoms was July 03, 2019. Risk Assessment: Do you want to hurt yourself or someone else? Patient reports no desire to harm self or others. Initial Sepsis Screen: Does the patient meet any 2 criteria? No. Patient's initial sepsis screen is negative. Does the patient have a suspected source of infection? No. Patient's initial sepsis screen is negative. Care prior to arrival: None. 21:25 Method Of Arrival: Ambulatory rr5 21:25 Acuity: FREDERICK 3 rr5 Historical: - Allergies: 21:25 Hydrocodone-Acetaminophen; rr5 - Home Meds: 21:25 Nexium Oral [Active]; rr5 - PMHx: 21:25 hole in the heart; rr5 - PSHx: 21:25 Knee surgery; shoulder surgery; heart catheterization; rr5 - Immunization history:: Adult Immunizations up to date. - Coronavirus screen:: The patient has NOT traveled to [place] in the past 14 days. - Social history:: Smoking status: Patient reports the use of cigarette tobacco products, smokes one-half pack cigarettes per day, Patient/guardian denies using alcohol, street drugs. - Ebola Screening: : Patient negative for fever greater than or equal to 101.5 degrees Fahrenheit, and additional compatible Ebola Virus Disease symptoms Patient denies exposure to infectious person Patient denies travel to an Ebola-affected area in the 21 days before illness onset. Screenin:31 Abuse screen: Denies threats or abuse. Denies injuries from another. Nutritional rr5 screening: No deficits noted. Tuberculosis screening: No symptoms or risk factors identified. Fall Risk None identified. Total Diaz Fall Scale indicates No Risk (0-24 pts). Assessment: 21:25 General: Appears in no apparent distress. uncomfortable, Behavior is calm, cooperative, rr5 appropriate for age. 21:25 Pain: Complains of pain in head and chest Pain does not radiate. Pain currently is 8 rr5 out of 10 on a pain scale. Quality of pain is described as aching, tingling, Pain began gradually, Is intermittent. Neuro: Level of Consciousness is awake, alert, obeys commands, Oriented to person, place, time, situation, Appropriate for age Reports headache numbness in face. Cardiovascular: Reports chest pain, HTN Capillary refill < 3 seconds Patient's skin is warm and dry. Respiratory: Reports cough that is Airway is patent Respiratory effort is even, unlabored, Respiratory pattern is regular, symmetrical. GI: No signs and/or symptoms were reported involving the gastrointestinal system. : No signs and/or symptoms were reported regarding the genitourinary system. EENT: No signs and/or symptoms were reported regarding the EENT system. Derm: Skin is intact, is healthy with good turgor, Skin temperature is warm. Musculoskeletal: Circulation, motion, and sensation intact. Capillary refill < 3 seconds. 22:35 Reassessment: Patient appears in no apparent distress at this time. Patient is alert, rr5 oriented x 3, equal unlabored respirations, skin warm/dry/pink. awaiting for CT scan result. Patient states feeling better. Patient states symptoms have improved. 23:00 Reassessment: Patient appears in no apparent distress at this time. No changes from rr5 previously documented assessment. 07/04 00:02 Reassessment: Patient appears in no apparent distress at this time. Patient is alert, rr5 oriented x 3, equal unlabored respirations, skin warm/dry/pink. discharge instruction given and explained without complaints made. Patient states feeling better. Patient states symptoms have improved. Vital Signs: 07/03 21:28 BP 148 / 111; Pulse 97; Resp 19; Temp 97.8; Pulse Ox 99% ; Weight 99.79 kg; Height 6 rr5 ft. 3 in. (190.50 cm); Pain 8/10; 22:36 BP 122 / 90; Pulse 91; Resp 18; Pulse Ox 99% ; rr5 23:00 BP 119 / 76; Pulse 85; Resp 19; Pulse Ox 100% on R/A; Pain 4/10; rr5 07/04 00:00 BP 115 / 83; Pulse 72; Resp 17; Temp 98; Pulse Ox 99% ; Pain 4/10; rr5 07/03 21:28 Body Mass Index 27.50 (99.79 kg, 190.50 cm) rr5 ED Course: 07/03 21:11 Patient arrived in ED. es 21:14 Komal Murillo FNP-C is [facility]. snw 21:14 Balbir Cardona MD is Attending Physician. snw 21:25 Mauro Crespo, RN is Primary Nurse. rr5 21:28 Triage completed. rr5 21:30 Patient has correct armband on for positive identification. Placed in gown. Bed in low rr5 position. Call light in reach. health equipment servicer on. Pulse ox on. NIBP on. 21:31 Arm band placed on. EKG completed in triage. Results shown to MD. rr5 22:30 No provider procedures requiring assistance completed. Patient did not have IV access rr5 during this emergency room visit. Patient maintains SpO2 saturation greater than 95% on room air. 23:37 Heath Fulton MD is Referral Physician. snw Administered Medications: 21:36 Drug: Metoprolol 25 mg Route: PO; rr5 22:30 Follow up: Response: No adverse reaction rr5 Outcome: 23:39 Discharge ordered by MD. snw 07/04 00:01 Discharged to home ambulatory. rr5 Condition: stable Discharge instructions given to patient, Instructed on discharge instructions, follow up and referral plans. medication usage, Demonstrated understanding of instructions, follow-up care, medications, Prescriptions given X 1. 00:03 Patient left the ED. rr5 Signatures: Komal Murillo FNP-C FNP-Maribeth Gwen Levin Mauro Crespo, RN RN rr5
[2019-07-04 00:29] VITALS: BP 115/83; TEMP 98; O2SAT 99
--- NOTE | 2019-07-04 06:20 | EKG ---
Test Date: 2019-07-03 Test Time: 21:20:19 [employer] Employee: RR MEASUREMENT RESULTS: Intervals: Rate: 99 NV: 162 QRSD: 90 QT: 320 QTc: 410 [place]: P: 49 NV: 162 QRS: 73 T: 27 INTERPRETIVE STATEMENTS: Normal sinus rhythm Normal ECG Compared to ECG 09/05/2010 18:21:33 Right-axis deviation no longer present Incomplete right bundle-branch block no longer present Electronically Signed On 07-04-19 06:19:53 CHIEF STRATEGY OFFICER by Heath Fulton
--- NOTE | 2019-07-04 08:41 | RAD REPORT ---
EXAM DESCRIPTION: RAD - Chest Pa And Lat (2 Views) - 07/03/2019 10:10 pm CLINICAL HISTORY: COUGHleft-sided chest pain COMPARISON: CHEST SINGLE VIEW dated 09/05/2010 TECHNIQUE: Frontal and lateral views of the chest were obtained. FINDINGS: The lungs are clear of focal abnormality. Interstitial pattern matches comparison. Heart size is normal and central vasculature is within normal limits. No pleural effusion or pneumothorax seen. No acute bony finding noted. No aortic abnormality. IMPRESSION: No acute cardiopulmonary process.
== END 2019-07-04 00:03 | disposition home or self-care (01) ==
LOC: ER 21:07
DX: I10 Essential (primary) hypertension (principal); F17.210 Nicotine dependence, cigarettes, uncomplicated; Z88.5 Allergy status to narcotic agent
CPT/HCPCS: 71046; 87070; 87081; 93005; 99284